=== PATIENT | male | born 1960 | race Caucasian/White ===

== ENCOUNTER 2025-05-05 20:52 | Outpatient (CLI) | payer MEDICARE, OTHER, SELFPAY | END 2025-05-05 20:53 | disposition home or self-care (01) | PROVIDERS: PCP Family Medicine; Visit Provider Family Medicine | DX: G47.33 Obstructive sleep apnea (adult) (pediatric) (principal); G47.31 Primary central sleep apnea | CPT/HCPCS: 95810 ==